=== PATIENT | male | born 1955 | race Caucasian/White ===

== ENCOUNTER 2018-10-24 20:21 | Emergency (ER) | payer OTHER ==
[~2018-10-24] VITALS: Ht 170.2 cm; Wt 79.6 kg
[2018-10-24 20:28] VITALS: BP 138/80
--- NOTE | 2018-10-24 20:30 | NUR ---
TO LOBBY , A/W MOIZ CAMPBELL, MALCOLM ERMD NOTED
--- NOTE | 2018-10-24 20:44 | NUR ---
BIB WHEELCHAIR TO ER BED 3
[2018-10-24] MEDS ORDERED: MORPHINE SULFATE 4 MG/ML SYR IM ONE (21:00)
--- NOTE | 2018-10-24 21:00 | NUR ---
PT BIB BOARD IN CARE PERSONEL FOR FALL. PT STATES HE FELL LAST NIGHT SANDING UP FROM COUCH AND HIT HEAD ON COFFEE TABLE. SMALL MOUSTAPHA LACERATION ON PT L FOREHEAD FROM FALL, NO BLEEDING, NO SWELLING. PT UNABLE TO STATE WHETHER HE LOST CONSCIOUSNESS. PT IS AAOX4, MOOD IS LIABLE, SPLEECH IS SLURRED, BOARDIN CARE PERSONEL STATES THIS IS NOT PT BASELINE. ER MD TO SEE PT.
[2018-10-24 22:58] VITALS: BP 132/88
--- NOTE | 2018-10-24 22:58 | NUR ---
Patient discharged with v/s stable. Written and verbal after care instructions given and explained. Patient alert, oriented and verbalized understanding of instructions. Wheel Chair Assisted with to car. All questions addressed prior to discharge. ID band removed. Patient advised to follow up with PMD. Rx of NORCO given. Patient educated on indication of medication including possible reaction and side effects. Opportunity to ask questions provided and answered.
== END 2018-10-24 22:58 | disposition home or self-care (01) ==
LOC: MED 20:21
DX: S09.90XA Unspecified injury of head, initial encounter (principal); F17.210 Nicotine dependence, cigarettes, uncomplicated; Z90.49 Acquired absence of other specified parts of digestive tract; Z90.89 Acquired absence of other organs; Z98.890 Other specified postprocedural states; W19.XXXA Unspecified fall, initial encounter; Y93.89 Activity, other specified; Y92.89 Other specified places as the place of occurrence of the external cause; Y99.8 Other external cause status
CPT/HCPCS: 70450; 96372; 99284; J2270